=== PATIENT | male | born 1940 | race Asian ===

== ENCOUNTER 2016-07-28 14:58 | Emergency (ER) | payer MEDICARE, MEDICAID ==
--- NOTE | 2016-07-28 15:27 | ED Physician Chart ---
Chief Complaint/HPI - Patient Information Date Seen:: 07/28/16 Time Seen:: 15:26 Chief Complaint:: PSYCH EVALUATION History of Present Illness:: This 76 year old male with dementia wants to wander and keeps leaving his facility in his wheel chair. Pt is unable to express himself. He speaks Tagalog but heidy asked what his name is by my Tagalog speaking nurse he just says "yes." He follow simple directions to open his mouth and squeeze my fingers. According to the transfer paper work the patient has end stage renal disease on dialysis, HTN, Diabetes, S/P CVA with residual right sided hemiplegia , Psychosis, intermittant A-Fib (not today), Gout, and neuropathy.The patient is unable to provide any information on his own. Allergies:: Allergies Allergy/AdvReac Type Severity Reaction Status Date / Time No Known Allergies Allergy Verified 07/28/16 15:14 Review of Systems - Review of Systems General/Constitutional: Other ( This patient is to confuse to provide a reliable review of systems..) Past Medical History - Past Medical History Past Medical History: HTN, DM, CHF, CVA/TIA, Dyslipidemia, Other (Chronic renal failure. See HPI for listed medical disorders.) Social History: Non Smoker, Single, Care Facility Employment:: NOT employeed Family Medical History - Family Member Mother History Unknown: Yes Ethnicity: (Micronesian) Physical Exam - Physical Examination General/Constitutional: Awake, Well-developed, well-nourished, Alert, No distress, Non-toxic appearing, Ambulatory Head: Atraumatic Eyes: Lids, conjuctiva normal, PERRL, EOMI Other Eyes comments:: NO NYSTAGMUS Skin: Nl inspection, No rash, No skin lesions, No ecchymosis, No lymphadenopathy ENMT: External ears, nose nl, Nasal exam nl, Oropharynx nl, Tonsils nl Neck: Nontender, Full ROM w/o pain, No JVD, No nuchal rigidity, No bruit, No mass Respiratory: Nl effort/Exclusion, Clear to Auscultation, No Wheeze/Rhonchi/Rales Cardio Vascular: RRR, No murmur, gallop, rubs, NL S1 S2 Other Cardio Vascular comments:: ADEQUATE PULSES IN ALL 4 EXTREMITIES. GI: No tenderness/rebounding/guarding, No organomegaly, No hernia, Normal BS's, Nondistended, No mass/bruits, No McBurney tenderness : No CVA tenderness (UNCIRCUMSIZED MALE GENITALIA) Extremities: No tenderness or effusion, Full ROM, No edema Other Extremities comments:: DECREASED MOTOR ON RT COMPARED TO LEFT. 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 Other Neuro/Psych comments:: ORIENTED X 0. Does not give his name. Does follow simple commands. Spontaneously moves all four extremities. Labs/Radiology/EKG Results - Lab Results Results: Laboratory Tests 07/28/16 07/28/16 07/28/16 15:41 15:41 15:41 WBC 5.5 RBC 3.81 Hgb 11.3 L Hct 34.9 L MCV 91.6 MCH 29.7 MCHC Differential 32.5 RDW 17.6 Plt Count 147 L MPV 8.3 Neutrophils % 65.0 Lymphocytes % 21.7 Monocytes % 9.5 Eosinophils % 3.6 Basophils % 0.2 Sodium 137 Potassium 4.4 Chloride 99 Carbon Dioxide 32.6 H Anion Gap 9.8 BUN 23 Creatinine 5.3 H* Est GFR ( Amer) TNP Est GFR (Non-Af Amer) TNP BUN/Creatinine Ratio 4.3 Glucose 120 H Calcium 9.3 Triglycerides 123 Cholesterol 132 LDL Cholesterol Direct 58 L HDL Cholesterol 40 TSH 1.04 Salicylates Acetaminophen 07/28/16 15:41 WBC RBC Hgb Hct MCV MCH MCHC Differential RDW Plt Count MPV Neutrophils % Lymphocytes % Monocytes % Eosinophils % Basophils % Sodium Potassium Chloride Carbon Dioxide Anion Gap BUN Creatinine Est GFR ( Amer) Est GFR (Non-Af Amer) BUN/Creatinine Ratio Glucose Calcium Triglycerides Cholesterol LDL Cholesterol Direct HDL Cholesterol TSH Salicylates < 25.0 L Acetaminophen < 10.0 L LAB DATA ANALYSIS: CBC WITH MILD ANEMIA CONSISTENT WITH RENAL FAILURE. ELECTROLYTES UNREMARKABLE. MILD ELEVATION OF THE BUN AND CREATININE BUT NOT IN NEED OF DIALYSIS POTASSIUM IS WITHIN THE NORMAL RANGE. FROM THE MEDICAL EXAM AND LAB RESULTS HE IS MEDICALLY CLEAR FOR ADMITTION. HE MAY BE IN NEED OF DIALYSIS IN A DAY OR 2 IF THE POTASSIUM GOES HIGH. - EKG Interpretations EKG Time:: 15:46 Rhythm: Normal Sinus without ectopy [place]: Normal Rate: 82 Comments:: normal ID interval. Normal QRS duration. Normal QT interval. Non-specific ST- T wave changes. IMPRESSION: Abnormal EKG. Assessment - Assessment General Assessment: CASE SUMMARY: the 76-year-old male was brought to the emergency department from a nursing facility because of behavioral problems. Patient has a motorized wheelchair and he leaves the facility without permission. The patient is severely demented and unable even to give his name. On physical examination there was no evidence of recent head trauma. The patient was pleasant and cooperative during his evaluation in the emergency department. Diagnostic studies were negative for any evidence of sepsis, electrolyte imbalance or uremia. The patient was deemed medically clear for admission to the geriatric/ psychiatric service. Transferred in stable condition. MDM DDX CONFUSION: NOT Sepsis based on his vital signs and laboratory studies. NOT Hypoglycemia based on serum glucose in the 120 range. NOT DKA Based on laboratory studies. NOT Electrolyte imbalance Based on lab studies. NOT Head injury based on physical examination. NOT Uremia based on a BUN in the normal range. ED Septic Shock - . Is Septic Shock (SBP<90, OR Lactate>4 mmol\\L) present?: No Reassessment (Disposition) - Reassessment Reassessment Condition:: Unchanged - Diagnosis Diagnosis:: PSYCHOSIS, NOS. END STAGE RENAL FAILURE, DIALYSIS DEPENDENT. HYPERTENSION. DIABETES. HISTORY OF DIASTOLIC CHF. - Aftercare/Follow up Instructions Notes:: PT TO CONFUSED TO UNDERSTAND LAB RESULTS OR PLAN. - Patient Disposition Discharge/Transfer:: [facility] - SNF ED Discharge Plan - Patient Disposition Admit/Discharge/Transfer: [facility] - SNF Condition at Disposition: Stable Instructions: Psychosis, Hypertension, [id number] Accepting Physician: Alissa Hull [Primary Care Provider] - 1-3 Days
[2016-07-28 15:54] LABS: % BASOPHILS 0.2 % (0.0-2.0); % EOSINOPHILS 3.6 % (0.0-5.0); % LYMPHOCYTES 21.7 % (20.0-50.0); % MONOCYTES 9.5 % (2.0-10.0); HEMATOCRIT 34.9 % (39.0-49.0); HEMOGLOBIN 11.3 gm/dL (12.6-17.4); MEAN CELL VOLUME 91.6 fl (80-99); MEAN CORPUSCULAR HEMOGLOBIN 29.7 pg (27.0-31.0); MEAN CORPUSCULAR HGB CONC 32.5 pg (28.0-36.0); MEAN PLATELET VOLUME 8.3 fl; NEUTROPHILE ABSOLUTE 3.6 Th/cmm (1.8-8.0); PLATELET COUNT 147 Th/cmm (150-400); RED BLOOD COUNT 3.81 Mil/cmm (3.80-5.80); RED CELL DISTRIBUTION WIDTH 17.6 % (11.5-20.0); WHITE BLOOD COUNT 5.5 Th/cmm (4.8-10.8)
[2016-07-28 16:01] LABS: ANION GAP 9.8 (7.0-16.0); BUN - UREA NITROGEN 23 mg/dL (7-25); BUN/CREATININE RATIO 4.3; CALCIUM SERUM 9.3 mg/dL (8.6-10.3); CARBON DIOXIDE 32.6 mEq/L (21.0-31.0); CHLORIDE 99 mEq/L (98-107); CHOLESTEROL 132 mg/dL (<200); GLUCOSE 120 mg/dL (70-105); POTASSIUM SERUM 4.4 mEq/L (3.5-5.1); SODIUM SERUM 137 mEq/L (136-145); TRIGLYCERIDES 123 mg/dL (<150)
[2016-07-28 16:12] LABS: ACETAMINOPHEN < 10.0 ug/mL (10.0-30.0)
[2016-07-28 16:14] LABS: CREATININE - SERUM 5.3 mg/dL (0.7-1.3)
[2016-07-29 11:11] LABS: HEP B CORE IGM Negative (Negative); HEP C ANTIBODY <0.1 s/co ratio (0.0-0.9)
== END 2016-07-28 18:45 ==
LOC: ER 14:58
DX: F29 Unspecified psychosis not due to a substance or known physiological condition (principal); E11.22 Type 2 diabetes mellitus with diabetic chronic kidney disease; I13.2 Hypertensive heart and chronic kidney disease with heart failure and with stage 5 chronic kidney disease, or end stage renal disease; N18.6 End stage renal disease; I50.30 Unspecified diastolic (congestive) heart failure; E78.5 Hyperlipidemia, unspecified; Z99.2 Dependence on renal dialysis; Z86.73 Personal history of transient ischemic attack (TIA), and cerebral infarction without residual deficits
CPT/HCPCS: 99285; 96372; 93005; 36415; 80074; 84443; 86592; 85025; 80329 ×2; 80061; 80048; J2060